=== PATIENT | male | born 1990 | race African-American/Black ===

== ENCOUNTER 2022-09-19 12:03 | Observation (INO) | payer OTHER, SELFPAY ==
[2022-09-19] VITALS (17 sets, daily range): BP systolic 124–147; BP diastolic 89–112; PULSE 75–98; RESP 11–21; TEMP 36.6; O2SAT 95–99
--- NOTE | ~2022-09-19 | CT_ITS ---
EXAMINATION: CT brain wo con DATE: 09/19/2022 13:55 INDICATION: Somnolence TECHNIQUE: Computed tomography (CT) of the head was performed without intravenous contrast. The mA wa s adjusted according to patient size. Iterative reconstruction technique was employed. Exam dose: 60 5.33 mGy-cm total exam DLP. COMPARISON: None FINDINGS: No intracranial mass lesion or hemorrhage or cerebrovascular accident. No midline shift or mass effect. Normal ventricular size. Normal antony-white matter differentiation. No subdural or epidural hematoma. No skull fracture or bone destruction. Included paranasal sinuses and mastoid air cells are normally developed and aerated. IMPRESSION: Negative Reviewed, dictated and finalized at [facility]. Reviewed, dictated and finalized at location [facility]. IMPRESSION: Negative
--- NOTE | ~2022-09-19 | XR_ITS ---
XR chest 2V DATE: 09/19/2022 14:00 INDICATION: Shortness of breath. Fatigue. Bilateral leg numbness. TECHNIQUE: AP and lateral view COMPARISON: None FINDINGS: Normal heart size. No hilar or mediastinal enlargement. No pulmonary infiltrate or consolid ation, pleural effusion or pulmonary vascular congestion or pneumothorax. IMPRESSION: Negative Reviewed, dictated and finalized at location [facility]. IMPRESSION: Negative
[2022-09-19] MEDS: SODIUM CHLORIDE 0.9% IV 1,000 ML 999 ML IV CONT (13:23)
[2022-09-19 13:33] LABS: Alveolar/Arterial O2 Gradient 19.8 mmHg; Base Excess ABG -0.2 mEq/l (+/-2.0); Carboxyhemoglobin 3.6 % THb (0-2.0); Device ROOM AIR; Fractional Inspired Oxygen 21 %; HCO3 ABG 25.5 mEq/l (22.0-26.0); Methemoglobin ABG 0.3 %THb (0-1.5); Oxygen Content ABG 17.6 %vol (16.0-22.0); Oxygen Saturation ABG 94.6 % (95.0-100.0); Oxyhemoglobin 90.1 % THb (90.0-100.0); PCO2 ABG 45.5 mmHg (35.0-45.0); PO2 ABG 75.4 mmHg (80.0-100.0); PO2 FiO2 Ratio Arterial Blood 3.59 %; Site Drawn LEFT BRACHIAL; Total Hemoglobin 13.9 g/dL (12.0-18.0); pH ABG 7.366 (7.350-7.450)
[2022-09-19 13:35] LABS: Basophils Percent Auto 0.5 % (0.2-1.2); Eosinophils Percent Auto 0.7 % (0-4.4); Hematocrit 38.2 % (42.0-52.0); Hemoglobin 13.7 g/dL (14.0-18.0); Immature Granulocyte Absolute 0.01 K/mm3 (0.00-0.031); Immature Granulocyte Percent A 0.2 % (0-0.5); Lymphocytes Absolute Auto 1.95 K/mm3 (0.9-3.2); Lymphocytes Percent Auto 34.4 % (18.3-44.2); Mean Corpuscular HGB Conc 35.9 g/dl (32-36); Mean Corpuscular Hemoglobin 30.3 pg (26-34); Mean Corpuscular Volume 84.5 fl (80-100); Monocytes Absolute Auto 0.6 K/mm3 (0.1-0.6); Monocytes Percent Auto 9.7 % (2.6-8.5); Neutrophils Absolute Auto 3.1 K/mm3 (1.3-6.7); Neutrophils Percent Auto 54.5 % (45.5-73.1); Platelet Count Result 260 k/mm3 (150-375); Red Blood Count 4.52 M/mm3 (4.6-6.20); White Blood Count 5.7 K/mm3 (4.5-10.0)
[2022-09-19 13:57] LABS: Appearance Urine Clear (Clear); Bilirubin Urine Negative (Negative); Blood Urine Negative (Negative); Color Urine Yellow (Yellow); Glucose Urine UA 3+ mg/dL (Negative); Ketones Urine 2+ mg/dL (Negative); Leukocyte Esterase Ur Negative LEU/UL (Negative); Nitrate Urine Negative (Negative); Protein Urine Negative (Negative); Specific Grav Ur 1.034 (1.001-1.035); Urobilinogen Urine 0.2 mg/dL (<2.0)
[2022-09-19 14:02] LABS: Monoscreen Negative (Negative); Negative Monotest Control Negative (Negative); Positive Monotest Control Positive (Positive)
[2022-09-19 14:05] LABS: Alanine Aminotransferase 28 U/L (6-50); Albumin Level 4.1 g/dL (3.5-5.1); Alkaline Phosphatase 86 U/L (38-126); Anion Gap 9 mmol/L (8-16); Aspartate Amino Transferase 30 U/L (17-59); Bilirubin,Total 0.8 mg/dL (0.2-1.3); Blood Urea Nitrogen 18 mg/dL (9-20); Calcium 8.7 mg/dL (8.4-10.2); Carbon Dioxide 27 mmol/L (22-30); Chloride 88 mmol/L (98-107); Estimated CRCL calculation 111 ml/min; Estimated Glomerular Filt Rate > 60; Glucose 638 mg/dL (65-110); Potassium 4.9 mmol/L (3.4-5.0); Sodium 124 mmol/L (137-145)
[2022-09-19 14:10] LABS: Influenza A QL RT-PCR Negative (Negative); Influenza B QL RT-PCR Negative (Negative); SARS-CoV-2 RNA PCR Negative
[2022-09-19 14:11] LABS: Add Urine Microscopic? NO
--- NOTE | 2022-09-19 14:14 | ED.GENADULT ---
HPI - General Adult General Chief complaint: Unspecified Stated complaint: multiple complaints Time Seen by Provider: 09/19/22 12:41 History of Present Illness HPI narrative: Patient is a 32-year-old male who presents ER with fatigue and weakness. Ongoing over the last month. Reports he feels tired all the time and has trouble waking up. When he does sleep he tends to sleep so heavily that he urinates on himself. Reports poor oral intake. Reports he has depressed mood which is a typical form. Denies fevers or chills or sweats. No chest pain or chest pressure. Has been having some intermittent numbness left little toe. Reports he does not check his sugars at home and that he takes metformin for his diabetes. Patient denies unintended weight loss. Related Data Home Medications Medication Instructions Recorded Confirmed amlodipine 5 mg tablet 5 mg PO DAILY 09/19/22 09/19/22 atorvastatin 10 mg tablet 10 mg PO HS 09/19/22 09/19/22 insulin glargine 100 unit/mL 20 unit subcut HS 09/19/22 09/19/22 subcutaneous solution (Lantus U-100 Insulin) insulin lispro 100 unit/mL 5 unit subcut TIDWM 09/19/22 09/19/22 subcutaneous solution (Humalog U-100 Insulin) losartan 25 mg tablet 25 mg PO DAILY 09/19/22 09/19/22 metformin 500 mg tablet 500 mg PO BID 09/19/22 09/19/22 Allergies Allergy/AdvReac Type Severity Reaction Status Date / Time lisinopril Allergy Severe Swelling Verified 09/19/22 16:53 of Lip/Tongue/Throat Review of Systems Constitutional: Constitutional: Denies chills, Reports daytime sleepiness, Reports fatigue, Denies fever(s), Reports lethargy, Reports poor appetite and Denies weight loss ENT: Denies nasal congestion and Denies sore throat Respiratory: Respiratory: Denies cough and Denies dyspnea Gastrointestinal: Gastrointestinal: Denies abdominal pain, Denies nausea and Denies vomiting PMF Past Medical History Medical History (Updated 09/19/22 @ 17:13 by Ivett Chaves NP) DM2 (diabetes mellitus, type 2) HTN (hypertension) with goal to be determined Hyperlipidemia Surgical History Surgical History (Updated 09/19/22 @ 15:04 by Ivett Chaves NP) [place] teeth extracted Family History Family History (Updated 09/19/22 @ 15:05 by Ivett Chaves NP) Grandparent Diabetes mellitus Mother Diabetes mellitus Social History Social History (Updated 09/19/22 @ 17:14 by Ivett Chaves NP) Social History: The patient lives with his and has one child. The power ip attorney is his . He works for [employer]. Code status full code Smoking packs per day: 0.5 Smoking cigarettes per day: 10.0 Years smoked: 8 Smoking pack-years: 4.00 Smoking status: Current some day smoker Tobacco type: cigarettes Alcohol intake: former Substance use: never Lack of Transportation: No Lack of Food: Sometimes True Current Housing: I Have Housing Concerned About Future Housing: No Difficulty Paying Gas/Electric Bills: No Difficulty Paying for Meds: No Currently Unemployed: No Education: Decline to Answer Difficulty w/ Childcare or Family Care: No Spiritual care concerns: No Exam Narrative: GENERAL: Fatigued-appearing, well-nourished, and in no acute distress. HEAD: Normocephalic, atraumatic. EYES: PERRL and EOMI. ENT: Mucous membranes moist. NECK: Supple. CHEST: Clear to auscultation. No respiratory distress. HEART: Regular rate and rhythm. Normal peripheral pulses. ABDOMEN: Soft, nontender, nondistended. EXTREMITIES: Normal range of motion. No edema. SKIN: Warm, dry, no rash. NEURO: Alert and oriented x3. PSYCH: Normal mood and affect. Course Course Emergency Course: I have approached the patient once again about his blood sugars. Earlier he had only said he is on metformin now he reports he is on Lantus and Humalog as well. He has not been taking them because he feels like they are making him feel depressed as wel
[2022-09-19 14:21] LABS: Thyroid Stimulating Hormone Reflex 0.355 uIU/mL (0.465-4.68)
--- NOTE | 2022-09-19 14:55 | PM.IMHP ---
H&P: HPI History of Present Illness Date/Time: 09/19/22 14:55 Chief Complaint: Multiple complaints Narrative: This is a 32-year-old male patient who has diabetes type 2. The patient came into the emergency room complaining of fatigue and weakness. The patient has polyphagia and polydipsia. The patient stated that he was diagnosed with diabetes 2 years ago. The patient stated that he is tired of poking himself. He does not like to give himself insulin or dizzy like to check his blood sugars. The patient has been sleeping quite a bit and having difficulty waking up. The patient stated that he is more depressed than usual. He has no chest pain or chest pressure. The patient does not check his blood sugars at home. The patient tells me that he has lost quite a bit a weight since he was diagnosed with diabetes 2 years ago. His H&H is 13.7 and 38.2. Sodium is 124 chloride 88. Glucose of 638 and then it came down to 346. His A1c is pending. TSH is 0.3 x 5 and T3 is 0.84. The patient was negative for mono, influenza a influenza B and COVID. Chest x-ray is negative. Head CT is negative. The patient was given a L fluid and IV insulin as well as Lantus. The patient is being admitted to observation status on the date of service of 09/19/2022 Review of Systems Review of Systems: All systems reviewed & are unremarkable except as noted in HPI and below Constitutional: Constitutional: Reports as per HPI and Reports no additional constitutional complaints Eyes: Eyes: Reports as per HPI and Reports no additional eye complaints ENT: Reports system reviewed and no additional complaints, except as documented and Reports Normal hearing present Cardiovascular: Cardiovascular: Reports no additional cardiovascular complaints Respiratory: Respiratory: Reports no additional respiratory complaints and Reports no additional respiratory complaints Gastrointestinal: Gastrointestinal: Reports as per HPI and Reports no additional gastrointestinal complaints Musculoskeletal: Musculoskeletal: Reports no additional musculoskeletal complaints Integumentary/Breasts: Skin/Breast: Reports system reviewed and no additional complaints, except as docu and Reports as per HPI Neurologic: Reports system reviewed and no additional complaints, except as documented, Reports as per HPI and Reports Normal hearing present Psychiatric: Psychiatric: Reports no additional psychiatric complaints and Reports as per HPI Endocrine: Endocrine: Reports no additional endocrine complaints Hematologic/Lymphatic: Hematologic/Lymphatic: Reports no additional hematologic/lymphatic complaints Allergic/Immunologic: Allergic/Immunologic: Reports no additional allergic/immunologic complaints PMFSH Past Medical History Medical History (Updated 09/19/22 @ 17:13 by Ivett Chaves NP) DM2 (diabetes mellitus, type 2) HTN (hypertension) with goal to be determined Hyperlipidemia Surgical History Surgical History (Updated 09/19/22 @ 15:04 by Ivett Chaves NP) [place] teeth extracted Family History Family History (Updated 09/19/22 @ 15:05 by Ivett Chaves NP) Grandparent Diabetes mellitus Mother Diabetes mellitus Social History Social History (Updated 09/19/22 @ 17:14 by Ivett Chaves NP) Social History: The patient lives with his and has one child. The power state's attorney is his . He works for [employer]. Code status full code Smoking packs per day: 0.5 Smoking cigarettes per day: 10.0 Years smoked: 8 Smoking pack-years: 4.00 Smoking status: Current some day smoker Tobacco type: cigarettes Alcohol intake: former Substance use: never Lack of Transportation: No Lack of Food: Sometimes True Current Housing: I Have Housing Concerned About Future Housing: No Difficulty Paying Gas/Electric Bills: No Difficulty Paying for Meds: No Currently Unemployed: No Education: Decline to Answer Difficulty w/ Child
[2022-09-19 15:02] LABS: Free T4 Free Thyroxine Reflex 1.23 ng/dL (0.78-2.19)
[2022-09-19] MEDS: INSULIN HUMAN REGULAR (*BKC) 100 UNITS/ML 8 UNITS IV PUSH (15:13)
[2022-09-19] MEDS: INSULIN GLARGINE (*BKC) 100 UNITS/ML 20 UNITS SUB-Q ×2 (15:15→21:06)
[2022-09-19] MEDS: SODIUM CHLORIDE 0.9% IV 1,000 ML 125 ML IV CONT (15:21)
[2022-09-19 15:43] LABS: Glucose Point of Care 459 mg/dl (65-105)
[2022-09-19 15:45] LABS: Total Triiodothyronine (T3) 0.84 NG/ML (0.97-1.69)
--- NOTE | 2022-09-19 16:08 | ADMGEN ---
This patient, Lupillo Kevin, was admitted to IMU Room 209-01 on 09/19/22 at 1548. Patient/family oriented to hospital policies and general routines including ID bracelet, bed and alarms, visiting hours, pain management, procedures, bathroom and other care routines, personal items, smoking policy, room service/diet, and visiting hours. Information on how to activate the Rapid Response Team has been discussed. Patient/Family are encouraged to report perceived risks to care and to ask questions if they do not understand what they are told or what they should do.
[2022-09-19 16:43] LABS: Glucose Point of Care 346 mg/dl (65-105)
[2022-09-19] MEDS: INSULIN ASPART (*BKC) 100 UNITS/ML 6 UNITS SUB-Q (17:28)
[2022-09-19 20:06] LABS: Glucose Point of Care 309 mg/dl (65-105)
[2022-09-19] MEDS: ATORVASTATIN 10 MG TABLET PO (20:36)
[2022-09-20] VITALS (14 sets, daily range): BP systolic 125–143; BP diastolic 79–99; PULSE 55–85; RESP 12–20; TEMP 35.9–36.7; O2SAT 97–100
[2022-09-20] MEDS: SODIUM CHLORIDE 0.9% IV 1,000 ML 125 ML IV CONT ×3 (00:02→18:24)
[2022-09-20 05:17] LABS: Basophils Percent Auto 0.5 % (0.2-1.2); Eosinophils Absolute Auto 0.1 K/mm3 (0-0.3); Eosinophils Percent Auto 2.2 % (0-4.4); Hematocrit 36.6 % (42.0-52.0); Hemoglobin 12.5 g/dL (14.0-18.0); Immature Granulocyte Absolute 0.02 K/mm3 (0.00-0.031); Immature Granulocyte Percent A 0.3 % (0-0.5); Lymphocytes Absolute Auto 3.11 K/mm3 (0.9-3.2); Lymphocytes Percent Auto 52.3 % (18.3-44.2); Mean Corpuscular HGB Conc 34.2 g/dl (32-36); Mean Corpuscular Hemoglobin 29.7 pg (26-34); Mean Corpuscular Volume 86.9 fl (80-100); Mean Platelet Volume 10.3 fl (7.4-10.4); Monocytes Absolute Auto 0.4 K/mm3 (0.1-0.6); Monocytes Percent Auto 6.7 % (2.6-8.5); Neutrophils Absolute Auto 2.3 K/mm3 (1.3-6.7); Platelet Count Result 216 k/mm3 (150-375); Red Blood Count 4.21 M/mm3 (4.6-6.20); Red Cell Distribution Width 11.3 % (11.5-14.5)
[2022-09-20 05:30] LABS: Alanine Aminotransferase 24 U/L (6-50); Albumin Level 3.5 g/dL (3.5-5.1); Alkaline Phosphatase 58 U/L (38-126); Anion Gap 5 mmol/L (8-16); Aspartate Amino Transferase 23 U/L (17-59); Bilirubin,Total 0.5 mg/dL (0.2-1.3); Blood Urea Nitrogen 15 mg/dL (9-20); Calcium 8.1 mg/dL (8.4-10.2); Carbon Dioxide 29 mmol/L (22-30); Chloride 98 mmol/L (98-107); Estimated CRCL calculation 144 ml/min; Estimated Glomerular Filt Rate > 60; Glucose 214 mg/dL (65-110); Magnesium 1.6 mg/dL (1.6-2.3); Potassium 3.5 mmol/L (3.4-5.0); Sodium 132 mmol/L (137-145)
[2022-09-20 07:24] LABS: Hemoglobin A1C > 14.0 % (<5.7)
[2022-09-20] MEDS: INSULIN ASPART (*BKC) 100 UNITS/ML SUB-Q ×3 (08:05→17:03)
[2022-09-20] MEDS: amLODIPine BESYLATE 5 MG TABLET PO (08:10)
[2022-09-20] MEDS: ENOXAPARIN 40 MG/0.4 ML SYRINGE SUB-Q (08:10)
[2022-09-20] MEDS: LOSARTAN POTASSIUM 25 MG TABLET PO (08:10)
[2022-09-20 08:11] LABS: Glucose Point of Care 318 mg/dl (65-105)
[2022-09-20] MEDS: polyethylene glycoL 3350 17 GM POWD.PACK PO (09:58)
[2022-09-20] MEDS: DOCUSATE SODIUM 100 MG CAPSULE PO ×2 (09:58→21:49)
[2022-09-20 11:44] LABS: Glucose Point of Care 270 mg/dl (65-105)
--- NOTE | 2022-09-20 14:59 | PM.IMPN ---
Progress Note: A&P Assessment and Plan (1) Uncontrolled diabetes mellitus: Status: Acute Assessment and Plan: This gentleman was diagnosed approximately 2 years ago diabetes. The patient stated that he is tired of sticking himself to check his blood sugars as well as given himself insulin. I explained to him that he could follow-up with an cargo router outpatient flores here at [facility]. The patient is noncompliant with his diet as well as medication. His stated that the patient does not always follow his diet. Check A1c Accu-Cheks AC and HS with sliding scale insulin high dose with hypoglycemic protocol. Continue with Lantus I reviewed the sites that the patient can inject himself. The patient thought that he could only inject himself in the abdomen. I explained that he can inject himself in the arms and the thighs as well as his buttocks. I did show in the diagram. I also explained to the patient that he may be eligible for a continue glucose monitor because he is taking insulin 3 times a day. certified adapted physical educator and dietitian has been consulted. Continue with IV fluids Since the patient is non compliant with his insulin may consider adding oral medications. 09/20/2022 interval history: 32-year-old male with type 2 diabetes uncontrolled with with hemoglobin A1c of 14 had long discussion, will start the patient on oral medication with metformin 500 mg twice and Glucotrol 5 mg XL once a day will monitor patient blood sugar with sliding scale all in the hospital, will have a dietitian and informatics educator work with the patient. (2) Hyperlipidemia: Code(s): E78.5 - Hyperlipidemia, unspecified Status: Acute Assessment and Plan: Continue with atorvastatin (3) HTN (hypertension) with goal to be determined: Code(s): I10 - Essential (primary) hypertension Status: Acute Assessment and Plan: Continue with amlodipine Plan Subclinical hypothyroidism Patient will need to recheck his thyroid level in approximately 1 month. Subjective Date/time seen: 09/20/22 14:59 Multiple complaints HPI-Narrative: This is a 32-year-old male patient who has diabetes type 2.? The patient came into the emergency room complaining of fatigue and weakness.? The patient has polyphagia and polydipsia.? The patient stated that he was diagnosed with diabetes 2 years ago.? The patient stated that he is tired of poking himself.? He does not like to give himself insulin or dizzy like to check his blood sugars.? The patient has been sleeping quite a bit and having difficulty waking up.? The patient stated that he is more depressed than usual.? He has no chest pain or chest pressure.? The patient does not check his blood sugars at home.? The patient tells me that he has lost quite a bit a weight since he was diagnosed with diabetes 2 years ago.? His H&H is 13.7 and 38.2.? Sodium is 124 chloride 88.? Glucose of 638 and then it came down to 346.? His A1c is pending.? TSH is 0.3 x 5 and T3 is 0.84.? The patient was negative for mono, influenza a influenza B and COVID.? Chest x-ray is negative.? Head CT is negative.? The patient was given a L fluid and IV insulin as well as Lantus.? 09/20/2022 interval history: 32-year-old male with type 2 diabetes uncontrolled with with hemoglobin A1c of 14 had long discussion, will start the patient on oral medication with metformin 500 mg twice and Glucotrol 5 mg XL once a day will monitor patient blood sugar with sliding scale all in the hospital, will have a dietitian and informatics educator work with the patient. Review of Systems Review of Systems: All systems reviewed & are unremarkable except as noted in HPI and below Exam Narrative: Moderately obese Patient is comfortable, NAD HEENT: eyes are clear and none icteric LUNGS: Normal respiratory ABD: Distended Lower extremities: no edema SKIN: nonjaundiced Neuro: grossly intact. Objective D
[2022-09-20 16:20] LABS: Glucose Point of Care 437 mg/dl (65-105)
[2022-09-20 16:52] LABS: Glucose Point of Care 402 mg/dl (65-105)
[2022-09-20] MEDS: INSULIN GLARGINE (*BKC) 100 UNITS/ML 30 UNITS SUB-Q (17:01)
[2022-09-20] MEDS: metFORMIN HCL XR 500 MG TAB.SR.24H PO (18:24)
[2022-09-20 19:37] LABS: Glucose Point of Care 366 mg/dl (65-105)
[2022-09-20 20:09] LABS: Glucose Point of Care 360 mg/dl (65-105)
[2022-09-20] MEDS: ATORVASTATIN 10 MG TABLET PO (21:49)
[2022-09-20] MEDS: INSULIN ASPART (*BKC) 100 UNITS/ML 8 UNITS SUB-Q (21:49)
[2022-09-21] VITALS (7 sets, daily range): BP systolic 116–133; BP diastolic 87–96; PULSE 59–74; RESP 16–20; TEMP 36.3–36.4; O2SAT 99–100
[2022-09-21] MEDS: SODIUM CHLORIDE 0.9% IV 1,000 ML 125 ML IV CONT (02:25)
[2022-09-21 08:02] LABS: Glucose Point of Care 117 mg/dl (65-105)
[2022-09-21] MEDS: DOCUSATE SODIUM 100 MG CAPSULE PO (08:14)
[2022-09-21] MEDS: metFORMIN HCL XR 500 MG TAB.SR.24H PO (08:14)
[2022-09-21] MEDS: LOSARTAN POTASSIUM 25 MG TABLET PO (08:14)
[2022-09-21] MEDS: glipiZIDE 5 MG TABLET PO (08:15)
[2022-09-21] MEDS: amLODIPine BESYLATE 5 MG TABLET PO (08:16)
[2022-09-21] MEDS: ENOXAPARIN 40 MG/0.4 ML SYRINGE SUB-Q (08:16)
[2022-09-21] MEDS: METOCLOPRAMIDE HCL INJ 10 MG/2 ML VIAL IV PUSH (11:44)
[2022-09-21] MEDS: INSULIN ASPART (*BKC) 100 UNITS/ML SUB-Q (11:56)
[2022-09-21 11:58] LABS: Glucose Point of Care 256 mg/dl (65-105)
--- NOTE | 2022-09-21 14:56 | PM.DS ---
DS: Admitting Diagnosis Discharge Date 09/21/2022 Admitting Diagnosis Multiple complaints DS: Discharge Diagnosis Discharge Diagnosis (1) Uncontrolled diabetes mellitus: Status: Acute Assessment and Plan: This gentleman was diagnosed approximately 2 years ago diabetes. The patient stated that he is tired of sticking himself to check his blood sugars as well as given himself insulin. I explained to him that he could follow-up with an prepleater outpatient flores here at [facility]. The patient is noncompliant with his diet as well as medication. His stated that the patient does not always follow his diet. Check A1c Accu-Cheks AC and HS with sliding scale insulin high dose with hypoglycemic protocol. Continue with Lantus I reviewed the sites that the patient can inject himself. The patient thought that he could only inject himself in the abdomen. I explained that he can inject himself in the arms and the thighs as well as his buttocks. I did show in the diagram. I also explained to the patient that he may be eligible for a continue glucose monitor because he is taking insulin 3 times a day. wet end tester and dietitian has been consulted. Continue with IV fluids Since the patient is non compliant with his insulin may consider adding oral medications. 09/20/2022 interval history: 32-year-old male with type 2 diabetes uncontrolled with with hemoglobin A1c of 14 had long discussion, will start the patient on oral medication with metformin 500 mg twice and Glucotrol 5 mg XL once a day will monitor patient blood sugar with sliding scale all in the hospital, will have a dietitian and material handling crew supervisor work with the patient. (2) Hyperlipidemia: Code(s): E78.5 - Hyperlipidemia, unspecified Status: Acute Assessment and Plan: Continue with atorvastatin (3) HTN (hypertension) with goal to be determined: Code(s): I10 - Essential (primary) hypertension Status: Acute Assessment and Plan: Continue with amlodipine Plan Subclinical hypothyroidism Patient will need to recheck his thyroid level in approximately 1 month. DS: Summary Hospital Course Reason for hospitalization: Multiple complaints Narrative: This is a 32-year-old male patient who has diabetes type 2.? The patient came into the emergency room complaining of fatigue and weakness.? The patient has polyphagia and polydipsia.? The patient stated that he was diagnosed with diabetes 2 years ago.? The patient stated that he is tired of poking himself.? He does not like to give himself insulin or dizzy like to check his blood sugars.? The patient has been sleeping quite a bit and having difficulty waking up.? The patient stated that he is more depressed than usual.? He has no chest pain or chest pressure.? The patient does not check his blood sugars at home.? The patient tells me that he has lost quite a bit a weight since he was diagnosed with diabetes 2 years ago.? His H&H is 13.7 and 38.2.? Sodium is 124 chloride 88.? Glucose of 638 and then it came down to 346.? His A1c is pending.? TSH is 0.3 x 5 and T3 is 0.84.? The patient was negative for mono, influenza a influenza B and COVID.? Chest x-ray is negative.? Head CT is negative.? The patient was given a L fluid and IV insulin as well as Lantus.? Hospital Course: 32-year-old male with type 2 diabetes uncontrolled with with hemoglobin A1c of 14 had long discussion, will start the patient on oral medication with metformin 500 mg twice and Glucotrol 5 mg XL once a day will monitor patient blood sugar with sliding scale all in the hospital, will have a dietitian and material handling crew supervisor work with the patient. Patient is clinically stable will discharge the patient will follow-up with his primary care provider and material handling crew supervisor. Time Spent with Patient Time attestation: Total time spent providing and/or coordinating discharge services: Exam Narrative
== END 2022-09-21 15:54 | disposition home or self-care (01) ==
LOC: ANHED 14:24 → ANHIMU 16:00
PROVIDERS: Nurse Practitioner; Admitting Provider Hospitalist; Emergency Provider Emergency Medicine; PCP Internal Medicine Gastroenterology; Visit Provider Family Medicine
DX: R53.83 Other fatigue (principal); E78.5 Hyperlipidemia, unspecified; I10 Essential (primary) hypertension; F32.A Depression, unspecified; R20.0 Anesthesia of skin; Z20.822 Contact with and (suspected) exposure to COVID-19; E11.65 Type 2 diabetes mellitus with hyperglycemia; F17.210 Nicotine dependence, cigarettes, uncomplicated; D64.9 Anemia, unspecified; E87.1 Hypo-osmolality and hyponatremia; R63.1 Polydipsia; R63.2 Polyphagia; R06.02 Shortness of breath; R63.0 Anorexia; E66.8 Other obesity; Z68.27 Body mass index [BMI] 27.0-27.9, adult; Z79.4 Long term (current) use of insulin; Z79.84 Long term (current) use of oral hypoglycemic drugs; Z79.899 Other long term (current) drug therapy; Z83.3 Family history of diabetes mellitus
CPT/HCPCS: 36415; 36600; 70450; 71046; 80053; 81003; 82375; 82805; 82948; 83036; 83050; 83605; 83735; 84439; 84443; 84480; 85025; 86308; 87636; 96360; 96361; 96374; 99285; A9270; G0378; J1650; J1815; J2765; J7030

== ENCOUNTER 2024-11-04 13:18 | Emergency (ER) | payer OTHER, SELFPAY ==
[2024-11-04] VITALS (15 sets, daily range): BP systolic 125–139; BP diastolic 100–104; PULSE 67–97; RESP 9–19; TEMP 36.3; O2SAT 99–100
--- OUTSIDE RECORDS SUMMARY | 2024-11-04 13:27 | XMS_ITS | Referral Summary ---
Author Organization [facility] Address [address] [place] [address] Care Team Providers Care Milliner Helper Name Role Phone Laila Medina MD Primary Care Provider Allergies Active Allergy Reactions Criticality Noted Date Comments Lisinopril Swelling Medium 06/30/2021 Medications benzonatate (TESSALON) 100 mg capsuleIndications: Cough Take 1 capsule (100 mg total) by mouth every 8 (eight) hours 21 capsule 2 Active ondansetron ODT (ZOFRAN-ODT) 4 mg disintegrating tablet Take 1 tablet (4 mg total) by mouth every 8 (eight) hours as needed for nausea or vomiting 20 tablet 2 Active Social History Tobacco Use Types Packs/Day Years Used Date Smoking Tobacco: Never Assessed Personal Safety Answer Date Recorded Getting School Help Needed Not on file 08/22 Sex and Gender Information Value Date Recorded Sex Assigned at Not on file Legal Sex Male 4:12 PM TURNER OFF Gender Identity Not on file Sexual Orientation Not on file Last Filed Vital Signs Vital Sign Reading Time Taken Comments Blood Pressure 110/73 07/01/2021 6:50 AM TURNER OFF Pulse 64 07/01/2021 6:50 AM TURNER OFF Temperature 36.7 C (98.1 F) 06/30/2021 4:13 PM TURNER OFF Respiratory Rate 16 07/01/2021 6:50 AM TURNER OFF Oxygen Saturation 99% 07/01/2021 6:50 AM TURNER OFF Inhaled Oxygen Concentration - - Weight 83.5 kg (184 lb 1.4 oz) 06/30/2021 4:13 P M TURNER OFF Height 170.2 cm (5' 7 ) 06/30/2021 4:13 PM TURNER OFF Body Mass Index 28.83 06/30/2021 4:13 PM TURNER OFF Plan of Treatment Not [place] [address] [employer] [facility] CHOICE PLUS Care Teams Milliner Helper Relationship Specialty [place] [address] [place] [id number] PCP - General Gastroenterology 06/30/21
--- OUTSIDE RECORDS SUMMARY | 2024-11-04 13:27 | XMS_ITS | Clinical Summary ---
Author Organization [facility] Address [address] [place] [address] Care Team Providers Care Medical Artist Name Role Phone Laila Medina MD Primary [...] on file Legal Sex Male 4:12 PM OPERATING ROOM ORDERLY Gender Identity Not on file Sexual Orientation Not on file Last Filed Vital Signs Vital Sign Reading Time Taken Comments Blood Pressure 110/73 07/01/2021 6:50 AM OPERATING ROOM ORDERLY Pulse 64 07/01/2021 6:50 AM OPERATING ROOM ORDERLY Temperature 36.7 C (98.1 F) 06/30/2021 4:13 PM OPERATING ROOM ORDERLY Respiratory Rate 16 07/01/2021 6:50 AM OPERATING ROOM ORDERLY Oxygen Saturation 99% 07/01/2021 6:50 AM OPERATING ROOM ORDERLY Inhaled Oxygen Concentration - - Weight 83.5 kg (184 lb 1.4 oz) 06/30/2021 4:13 P M OPERATING ROOM ORDERLY Height 170.2 cm (5' 7 ) 06/30/2021 4:13 PM OPERATING ROOM ORDERLY Body Mass Index 28.83 06/30/2021 4:13 PM OPERATING ROOM ORDERLY Plan of Treatment [place] [address] [employer] [facility] CHOICE PLUS [facility] H[facility]/PPO Address: [address] [address] [place] [address] Care Teams Medical Artist Relationship Specialty [place] [address] [place] [id number] PCP - General Gastroenterology 06/30/21
--- OUTSIDE RECORDS SUMMARY | 2024-11-04 13:27 | XMS_ITS | Clinical Summary ---
Author Organization [facility] Address [address] [place] [address] Care Team Providers Care Commercial Teller Name Role Phone Laila Medina MD Primary Care Provider [phone] Allergies Active Allergy Reactions Criticality Noted Date Comments Penicillins Unknown 07/17/2021 Medications benzonatate 100 MG capsule Take 100 mg by mouth 3 (three) times daily as needed for Cough. 2 Active ondansetron 4 MG disintegrating tablet Take 4 mg by mouth every 8 (eight) hours as needed for Nausea. 2 Active atorvastatin 10 MG tablet Take 10 mg by mouth nightly at bedtime. Active losartan 25 MG tablet Take 25 mg by mouth daily. Active amLODIPine 5 MG tablet Take 5 mg by mouth daily. Active metFORMIN 500 MG tablet Take 2 tablets (1,000 mg total) by mouth 2 (two) times daily with meals. 180 tablet 1 2 Active insulin glargine 100 UNIT/ML injection (VIAL) Inject 22 Units into the skin nightly at bedtime. 10 mL 3 2 Active insulin lispro 100 UNIT/ML injection (VIAL) Inject 7 Units into the skin 3 (three) times daily with meals. 10 mL 12 2 Active Glucose Blood (FREESTYLE TEST STRIPS) test strip 1 strip by Other route as needed. Use as instructed 500 strip 2 2 Active Lancets Misc 1 Units by Does not apply route 4 (four) times daily. 200 each 2 2 Active Blood Glucose Monitoring Suppl (D-CARE GLUCOMETER) w/Device Kit 1 Units by Does not apply route 4 (four) times daily. 1 kit 2 Active Alcohol Swabs (ALCOHOL WIPES) 70 % Pads 1 Units by Does not apply route 4 (four) times daily. 100 each 2 2 Active Active Problems Problem Noted Date Diagnosed Date Diabetes mellitus ([facility]) Assessment & Plan (07/19/2021 11:18 AM STRIPPER SOFT PLASTIC): Chronic, uncontrolled. A1C > 18.5 on admission. Patient takes metformin 500 mg BID at home for management. Presented in DKA. Need to discuss compliance on medication. Warrants metformin max dose and basal bolus insulin on discharge. Hold metformin while inpatient Lantus 15 units given last night Increase Lantus to 22, mealtime to 7 U BG 287 Diabetes education ordered Correctional insulin ordered, resistant dosing Likely needs SGLT-2 or DDP-4 inhibitor as well on discharge Hypertension Assessment & Plan (07/18/2021 11:11 AM STRIPPER SOFT PLASTIC): Chronic. Uncontrolled. Home meds include losartan and amlodipine. BP low overnight. Hold home BP meds until BP elevates Monitor while inpatient. Resolved Problems Problem Noted Date Diagnosed Date Resolved Date DKA (diabetic ketoacidosis) ([facility]) 07/17/19 22 07/18/2021 Assessment & Plan (07/18/2021 11:08 AM STRIPPER SOFT PLASTIC): Resolved. Anion gap closed early this morning. Insulin drip stopped after 2 hours of Lantus dose. Continue to monitor with daily BMP Cough 07/19/2021 Assessment & Plan (07/18/2021 11:12 AM STRIPPER SOFT PLASTIC): COVID negative, likely was infected recently but since resolved. CTA negative. Continue to monitor as needed. Elevated d-dimer 07/19/2021 Assessment & Plan (07/18/2021 11:12 AM STRIPPER SOFT PLASTIC): CTA negative. Likely related to recent COVID. Immunizations Immunization Administration Dates Next Due Fluzone 6 Months+ Quad (0.5 mL Prefilled Syringe ) 07/20/2021 Social History Tobacco Use Types Packs/Day Years Used Date Smoking Tobacco: Former Smokeless Tobacco: Never Alcohol Use Standard Drinks/Week Comments Not Currently 0 (1 standard drink = 0.6 oz pur e alcohol) Sex and Gender Information Value Date Recorded Sex Assigned at Not on file Legal Sex Male 1:11 PM STRIPPER SOFT PLASTIC Gender Identity Not on file Sexual Orientation Not on file Last Filed Vital Signs Vital Sign Reading Time Taken Comments Blood Pressure 113/77 07/20/2021 3:55 AM STRIPPER SOFT PLASTIC Pulse 65 07/20/2021 3:55 AM STRIPPER SOFT PLASTIC Temperature 36.5 C (97.7 F) 07/20/2021 3:55 AM STRIPPER SOFT PLASTIC Respiratory Rate 18 07/20/2021 3:55 AM STRIPPER SOFT PLASTIC Oxygen Saturation 99% 07/20/2021 3:55 AM STRIPPER SOFT PLASTIC Inhaled Oxygen Concentration - - Weight 81 kg (178 lb 9.2 oz) 07/20/2021 3:55 AM STRIPPER SOFT PLASTIC Height 170.2 cm (5' 7 ) 07/17/2021 1:13 PM STRIPPER SOFT PLASTIC Body Mass Index 27.97 07/17/2021 1:13 PM STRIPPER SOFT PLASTIC Plan of Treatment Health Maintenance Due Date Last Done Comments Kidney Health Evaluation 1989 Lipid Panel 1989 Annual Physical 1992 DTaP, Tdap and Td Vaccines (5 - Tdap) 05/11/2002 05/10/2002, 02/27/1994, 03/01/1991, Additional history exists Diabetes: Retinopathy Eye Exam 2007 Hepatitis C 2007 Pneumococcal Vaccine: Pediatrics (0 to 5 Years) and At-Risk Patients (6 to 49 Years) (1 of 2 - PCV) 2008 Hemoglobin A1C 01/14/2022 07/17/2021 COVID-19 Vaccine ( - 2023- season) 2024 Hepatitis B Vaccines Completed 02/14/2003, 10/12/2002, 06/01/2002 HPV Vaccines Aged Out No longer eligi ble based on patient's age to complete this topic Meningococcal B Vaccine Aged Out No l onger eligible based on patient's age to complete this topic Meningococcal Vaccine Aged Out No kaden lobo eligible based on patient's age to complete this topic RSV Immunizations Under 20 Months Aged Out No longer eligible based on patient's age to complete this topic Goals Goal Patient Goal Type Associated Problems Recent Progress Patient-Stated? 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 Procedure Name Priority Date/Time Associated Diagnosis Comments HEMOGLOBIN, GLYCOSYLATED Routine 07/17/2021 2:15 PM STRIPPER SOFT PLASTIC from Last 3 Months or Most Recently Relevant to Health Maintenance Results * (ABNORMAL) HEMOGLOBIN, GLYCATED (07/17/2021 2:15 PM STRIPPER SOFT PLASTIC) HGB A1C >18.5(H) <5.7 % 07/18/2021 2:54 AM STRIPPER SOFT PLASTIC [facility] Comment: ADA GUIDELINES 2010 5.7 TO 6.4% INCREASED RISK OF DIABETES > OR = 6.5% CONSISTENT WITH DIABETES ESTIMATED AVG GLUCOSE NOT CALCULATED mg/dL 07/18/2021 2:54 AM STRIPPER SOFT PLASTIC [facility] 07/17/2021 2:15 PM STRIPPER SOFT PLASTIC Kenneth Hui MD LABORATORY Final Result [facility] [address] [place] [address], [place] [phone] from Last 3 Months or Most Recently Relevant to Health Maintenance Insurance MEDICAID UHC Advance Directives * Full Code (Latest Code Status on File) Date Activated Date Inactivated Comments 07/17/2021 5:19 PM 07/20/2021 11:53 AM Care Teams Commercial Teller Relationship Specialty Start Date End Date Laila Medina MD PCP - General INTERNAL MEDICINE 07/17/21
[2024-11-04 16:05] LABS: Basophils Percent Auto 0.6 % (0.2-1.2); Eosinophils Absolute Auto 0.1 K/mm3 (0-0.3); Eosinophils Percent Auto 0.9 % (0-4.4); Hematocrit 39.6 % (42.0-52.0); Hemoglobin 13.4 g/dL (14.0-18.0); Immature Granulocyte Absolute 0.01 K/mm3 (0.00-0.031); Immature Granulocyte Percent A 0.2 % (0-0.5); Lymphocytes Absolute Auto 2.26 K/mm3 (0.9-3.2); Lymphocytes Percent Auto 42.7 % (18.3-44.2); Mean Corpuscular HGB Conc 33.8 g/dl (32-36); Mean Corpuscular Hemoglobin 28.9 pg (26-34); Mean Corpuscular Volume 85.5 fl (80-100); Mean Platelet Volume 10.1 fl (7.4-10.4); Monocytes Absolute Auto 0.4 K/mm3 (0.1-0.6); Monocytes Percent Auto 8.3 % (2.6-8.5); Neutrophils Absolute Auto 2.5 K/mm3 (1.3-6.7); Neutrophils Percent Auto 47.3 % (45.5-73.1); Platelet Count Result 236 k/mm3 (150-375); Red Blood Count 4.63 M/mm3 (4.6-6.20); Red Cell Distribution Width 11.2 % (11.5-14.5); White Blood Count 5.3 K/mm3 (4.5-10.0)
[2024-11-04 16:08] LABS: Add Urine Microscopic? NO; Appearance Urine Clear (Clear); Bilirubin Urine Negative (Negative); Blood Urine Negative (Negative); Color Urine Yellow (Yellow); Glucose Urine UA 3+ mg/dL (Negative); Ketones Urine Trace mg/dL (Negative); Leukocyte Esterase Ur Negative LEU/UL (Negative); Nitrate Urine Negative (Negative); Protein Urine Negative (Negative); Urobilinogen Urine 0.2 mg/dL (<2.0); pH Urine 5.5 (5.0-9.0)
[2024-11-04 16:18] LABS: Alanine Aminotransferase 26 U/L (6-50); Albumin Level 4.3 g/dL (3.5-5.1); Alkaline Phosphatase 72 U/L (38-126); Anion Gap 10 mmol/L (4-12); Aspartate Amino Transferase 33 U/L (17-59); Bilirubin,Total 0.6 mg/dL (0.2-1.3); Blood Urea Nitrogen 16 mg/dL (9-20); Calcium 8.9 mg/dL (8.4-10.2); Carbon Dioxide 25 mmol/L (22-30); Chloride 94 mmol/L (98-107); Estimated CRCL calculation 112 ml/min; Estimated Glomerular Filt Rate > 60; Glucose 508 mg/dL (65-110); Lipase 515 U/L (23-300); Potassium 4.1 mmol/L (3.4-5.0); Sodium 129 mmol/L (137-145)
[2024-11-04] MEDS: SODIUM CHLORIDE 0.9% IV 1,000 ML 999 ML IV CONT ×2 (16:38)
[2024-11-04] MEDS: INSULIN HUMAN REGULAR (*BKC) 100 UNITS/ML 7.3 UNITS IV PUSH (16:38)
--- NOTE | 2024-11-04 17:20 | ED_ITS ---
HPI - Abdominal Pain General Chief Complaint: Abdominal Pain Stated Complaint: Lower abd pain rad down to feet x 3-4 days Time Seen by Provider: 11/04/24 16:26 History of Present Illness HPI narrative: Patient is a 34-year-old male who presents ER with multiple complaints. Mainly discomfort in lower abdomen left side and some discomfort in his thighs and calves. No trauma. No diarrhea. No urinary symptoms. Cannot describe any aggravating factors. Patient with elevated glucose. On taking history patient is poorly compliant with his insulin and Lantus. He has not been diagnosed with neuropathy but is concerned he may be developing it. Not describe any alleviating factors nor aggravating factors abdominal pain. It is nonradiating other than the discomfort that goes down his legs. Has no rashes. Related Data Home Medications Medication Instructions Recorded Confirmed Last Taken Type amlodipine 5 mg tablet 5 mg PO DAILY 09/19/22 09/19/22 Unknown History atorvastatin 10 mg tablet 10 mg PO HS 09/19/22 09/19/22 Unknown History insulin glargine 100 unit/mL 20 unit subcut HS 09/19/22 09/19/22 Unknown History subcutaneous solution (Lantus U-100 Insulin) insulin lispro 100 unit/mL 5 unit subcut TIDWM 09/19/22 09/19/22 Unknown History subcutaneous solution (Humalog U-100 Insulin) losartan 25 mg tablet 25 mg PO DAILY 09/19/22 09/19/22 Unknown History Allergies Allergy/AdvReac Type Severity Reaction Status Date / Time lisinopril Allergy Severe Swelling Verified 11/04/24 13:19 of Lip/Tongue/Throat Review of Systems 2 Review of Systems: All systems reviewed & are unremarkable except as noted in HPI and below Constitutional: Constitutional: Reports no additional constitutional complaints ENT: Reports system reviewed and no additional complaints, except as documented Cardiovascular: Cardiovascular: Reports no additional cardiovascular complaints Respiratory: Respiratory: Reports no additional respiratory complaints Gastrointestinal: Gastrointestinal: Reports no additional gastrointestinal complaints Musculoskeletal: Musculoskeletal: Reports no additional musculoskeletal complaints [facility] Past Medical History Medical History (Updated 11/04/24 @ 20:16 by Andry Rojas MD) HTN (hypertension) with goal to be determined Hyperlipidemia DM2 (diabetes mellitus, type 2) Surgical History Surgical History (Updated 09/19/22 @ 15:04 by Ivett Chaves, PLANNING MANAGER) [place] teeth extracted Family History Family History (Updated 09/19/22 @ 15:05 by Ivett Chaves, PLANNING MANAGER) Grandparent Diabetes mellitus Mother Diabetes mellitus Social History Social History (Updated 09/19/22 @ 17:14 by Ivett Chaves, PLANNING MANAGER) Social History: The patient lives with his and has one child. The power defense attorney is his . He works for [employer]. Code status full code Smoking packs per day: 0.5 Smoking cigarettes per day: 10.0 Years smoked: 8 Smoking pack-years: 4.00 Smoking status: Current some day smoker Tobacco type: cigarettes Alcohol intake: former Substance use: never Lack of Transportation: No Lack of Food: Sometimes True Current Housing: I Have Housing Concerned About Future Housing: No Difficulty Paying Gas/Electric Bills: No Difficulty Paying for Meds: No Currently Unemployed: No Education: Decline to Answer Difficulty w/ Childcare or Family Care: No Spiritual care concerns: No Exam 2 Narrative: GENERAL: Well-appearing, well-nourished, and in no acute distress. HEAD: Normocephalic, atraumatic. ENT: Mucous membranes moist. NECK: Supple. CHEST: Clear to auscultation. No respiratory distress. HEART: Regular rate and rhythm. Normal peripheral pulses. ABDOMEN: Soft, nontender, nondistended. EXTREMITIES: Normal range of motion. No edema. SKIN: Warm, dry, no rash. NEURO: Alert and oriented x3. PSYCH: Normal mood and affect. Course Course Emergency Course: Unremarkable exam. 2 L IV fluid and IV insulin to help with glucose. No gap. Discussed importance of compliance with diabetic regimen and patient verbalized understanding. Will need to follow-up with PCP. Vital Signs Vital signs: Vital Signs Temperature 97.4 F L 11/04/24 14:01 Pulse Rate 97 11/04/24 14:01 Respiratory Rate 16 11/04/24 14:01 Blood Pressure 139/100 H 11/04/24 14:01 Pulse Oximetry 100 11/04/24 14:01 Oxygen Delivery Room Air 11/04/24 14:01 Temperature 97.4 F L 11/04/24 14:01 Pulse Rate 88 11/04/24 15:23 Respiratory Rate 9 L 11/04/24 15:23 Blood Pressure 125/104 H 11/04/24 15:23 Pulse Oximetry 99 11/04/24 15:23 Oxygen Delivery Room Air 11/04/24 14:01 MDM - Abdominal Pain Lab Data 11/04/24 15:59 11/04/24 15:59 Labs: Lab Results 11/04/24 11/04/24 Range/Units 15:59 18:54 WBC 5.3 (4.5-10.0) K/mm3 RBC 4.63 (4.6-6.20) M/mm3 Hgb 13.4 L (14.0-18.0) g/dL Hct 39.6 L (42.0-52.0) % MCV 85.5 (80-100) fl MCH 28.9 (26-34) pg MCHC 33.8 (32-36) g/dl RDW 11.2 L (11.5-14.5) % Plt Count 236 (150-375) k/mm3 MPV 10.1 (7.4-10.4) fl Immature Gran % (Auto) 0.2 (0-0.5) % Neut % (Auto) 47.3 (45.5-73.1) % Lymph % (Auto) 42.7 (18.3-44.2) % [place] % (Auto) 8.3 (2.6-8.5) % Eos % (Auto) 0.9 (0-4.4) % Baso % (Auto) 0.6 (0.2-1.2) % Lymph # (Auto) 2.26 (0.9-3.2) K/mm3 [place] # (Auto) 0.4 (0.1-0.6) K/mm3 Eos # (Auto) 0.1 (0-0.3) K/mm3 Baso # (Auto) 0.0 (0.0-0.1) K/mm3 Abs Immat Gran (auto) 0.01 (0.00-0.031) K/mm3 Absolute Neuts (auto) 2.5 (1.3-6.7) K/mm3 Absolute Nucleated RBC 0.000 (0.0-0.012) K/mm3 Nucleated RBC % 0.0 (0.0-0.2) % Sodium 129 L (137-145) mmol/L Potassium 4.1 (3.4-5.0) mmol/L Chloride 94 L (98-107) mmol/L Carbon Dioxide 25 (22-30) mmol/L Anion Gap 10 (4-12) mmol/L BUN 16 (9-20) mg/dL Creatinine 0.72 (0.7-1.3) mg/dL Estim Creat Clear Calc 112 ml/min Estimated GFR > 60 (59 - ) Glucose 508 H* (65-110) mg/dL POC Capillary Glucose 194 H (65-105) mg/dl Calcium 8.9 (8.4-10.2) mg/dL Total Bilirubin 0.6 (0.2-1.3) mg/dL AST 33 (17-59) U/L ALT 26 (6-50) U/L Alkaline Phosphatase 72 (38-126) U/L Total Protein 7.0 (6.3-8.2) g/dL Albumin 4.3 (3.5-5.1) g/dL Lipase 515 H (23-300) U/L Urine Color Yellow (Yellow) Urine Appearance Clear (Clear) Urine pH 5.5 (5.0-9.0) Ur Specific [place] 1.040 H (1.001-1.035) Urine Protein Negative (Negative) mg/dL Urine Glucose (UA) 3+ H (Negative) mg/dL Urine Ketones Trace H (Negative) mg/dL Ur Blood (Man) Negative (Negative) Urine Nitrate Negative (Negative) Urine Bilirubin Negative (Negative) Urine Urobilinogen 0.2 (<2.0) mg/dL Leukocyte Esterase Rfl Negative (Negative) MARIBEL/UL Discharge Plan Discharge Clinical Impression: Uncontrolled diabetes mellitus Patient Disposition: Home Condition: Stable Instructions: Diabetic Hyperglycemia (ED) Additional Instructions: Take your Lantus daily. Follow-up with primary care doctor. Discuss if there is a better regimen to help control your blood sugar. Patient Language: Mongolian Prescriptions: No Action insulin glargine [Lantus U-100 Insulin] 100 unit/mL solution 20 unit SUBCUT HS atorvastatin 10 mg tablet 10 mg PO HS amlodipine 5 mg tablet 5 mg PO DAILY losartan 25 mg tablet 25 mg PO DAILY insulin lispro [Humalog U-100 Insulin] 100 unit/mL solution 5 unit subcut TIDWM dextrose [Glutose-15] 40 % Gel 15 g PO PRN PRN (Reason: Hypoglycemia) Qty: 112.5 0RF glipizide 5 mg Tablet 5 mg PO DAILY@0730 Qty: 30 0RF GlucaGen Diagnostic Kit 1 mg/mL Recon Soln 1 mg IM PRN PRN (Reason: Hypoglycemia) Qty: 1 0RF nicotine 14 mg/24 hr Patch 24 Hour 1 patch transdermal QAM Qty: 28 0RF polyethylene glycol 3350 [Miralax] 17 gram Powder In Packet 17 g PO QAM PRN (Reason: Constipation) Qty: 14 0RF metformin 500 mg tablet 500 mg PO BID Qty: 60 0RF Follow-up/Referrals: Adam,Laila Colin MD [Non-Staff] - 1 Week
--- OUTSIDE RECORDS SUMMARY | 2024-11-04 17:29 | XMS_ITS | Clinical Summary ---
Author Organization [facility] Address [address] [place] [address] Care Team Providers Care Senior Partner Name Role Phone Laila Medina MD Primary Care Provider [phone] Allergies Active Allergy Reactions Criticality Noted Date [...] Problem Noted Date Diagnosed Date Diabetes mellitus ([facility]) Assessment & Plan (07/19/2021 11:18 AM PIZZA COOK): Chronic, uncontrolled. A1C > 18.5 on admission. [...] Hypertension Assessment & Plan (07/18/2021 11:11 AM PIZZA COOK): Chronic. Uncontrolled. Home meds include losartan and amlodipine. BP low overnight. Hold home BP meds until BP elevates Monitor while inpatient. Resolved Problems Problem Noted Date Diagnosed Date Resolved Date DKA (diabetic ketoacidosis) ([facility]) 07/17/19 22 07/18/2021 Assessment & Plan (07/18/2021 11:08 AM PIZZA COOK): Resolved. Anion gap closed early this morning. Insulin drip stopped after 2 hours of Lantus dose. Continue to monitor with daily BMP Cough 07/19/2021 Assessment & Plan (07/18/2021 11:12 AM PIZZA COOK): COVID negative, likely was infected recently but since resolved. CTA negative. Continue to monitor as needed. Elevated d-dimer 07/19/2021 Assessment & Plan (07/18/2021 11:12 AM PIZZA COOK): CTA negative. Likely related to recent COVID. [...] on file Legal Sex Male 1:11 PM PIZZA COOK Gender Identity Not on file Sexual Orientation Not on file Last Filed Vital Signs Vital Sign Reading Time Taken Comments Blood Pressure 113/77 07/20/2021 3:55 AM PIZZA COOK Pulse 65 07/20/2021 3:55 AM PIZZA COOK Temperature 36.5 C (97.7 F) 07/20/2021 3:55 AM PIZZA COOK Respiratory Rate 18 07/20/2021 3:55 AM PIZZA COOK Oxygen Saturation 99% 07/20/2021 3:55 AM PIZZA COOK Inhaled Oxygen Concentration - - Weight 81 kg (178 lb 9.2 oz) 07/20/2021 3:55 AM PIZZA COOK Height 170.2 cm (5' 7 ) 07/17/2021 1:13 PM PIZZA COOK Body Mass Index 27.97 07/17/2021 1:13 PM PIZZA COOK Plan of Treatment Health Maintenance Due Date [...] Consistently take medications as Prescribed General No [place], 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, 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 Procedure Name Priority Date/Time Associated Diagnosis Comments HEMOGLOBIN, GLYCOSYLATED Routine 07/17/2021 2:15 PM PIZZA COOK from Last 3 Months or Most Recently Relevant to Health Maintenance Results * (ABNORMAL) HEMOGLOBIN, GLYCATED (07/17/2021 2:15 PM PIZZA COOK) HGB A1C >18.5(H) <5.7 % 07/18/2021 2:54 AM PIZZA COOK [facility] Comment: ADA GUIDELINES 2010 5.7 TO 6.4% INCREASED RISK OF DIABETES > OR = 6.5% CONSISTENT WITH DIABETES ESTIMATED AVG GLUCOSE NOT CALCULATED mg/dL 07/18/2021 2:54 AM PIZZA COOK [facility] 07/17/2021 2:15 PM PIZZA COOK Kenneth Hui MD LABORATORY Final Result [facility] [address] [place] [address], [place] [phone] from Last 3 Months or Most Recently Relevant to Health Maintenance Insurance MEDICAID UHC Advance Directives * Full Code (Latest Code Status on File) Date Activated Date Inactivated Comments 07/17/2021 5:19 PM 07/20/2021 11:53 AM Care Teams Senior Partner Relationship Specialty Start Date End Date Laila Medina MD PCP - General INTERNAL MEDICINE 07/17/21
--- OUTSIDE RECORDS SUMMARY | 2024-11-04 17:29 | XMS_ITS | Clinical Summary ---
Author Organization [facility] Address [address] [place] [address] Care Team Providers Care Electrical Controls Technician Name Role Phone Laila Medina MD Primary [...] on file Legal Sex Male 4:12 PM BLOCK AND CASE MAKER Gender Identity Not on file Sexual Orientation Not on file Last Filed Vital Signs Vital Sign Reading Time Taken Comments Blood Pressure 110/73 07/01/2021 6:50 AM BLOCK AND CASE MAKER Pulse 64 07/01/2021 6:50 AM BLOCK AND CASE MAKER Temperature 36.7 C (98.1 F) 06/30/2021 4:13 PM BLOCK AND CASE MAKER Respiratory Rate 16 07/01/2021 6:50 AM BLOCK AND CASE MAKER Oxygen Saturation 99% 07/01/2021 6:50 AM BLOCK AND CASE MAKER Inhaled Oxygen Concentration - - Weight 83.5 kg (184 lb 1.4 oz) 06/30/2021 4:13 P M BLOCK AND CASE MAKER Height 170.2 cm (5' 7 ) 06/30/2021 4:13 PM BLOCK AND CASE MAKER Body Mass Index 28.83 06/30/2021 4:13 PM BLOCK AND CASE MAKER Plan of Treatment [place] [address] IDPA [facility] CHOICE PLUS [facility] HMO/PPO Address: [address] [address] [place] [address] Care Teams Electrical Controls Technician Relationship Specialty [place] [address] [place] [id number] PCP - General Gastroenterology 06/30/21
--- OUTSIDE RECORDS SUMMARY | 2024-11-04 17:29 | XMS_ITS | Referral Summary ---
Author Organization [facility] Address [address] [place] [address] Care Team Providers Care Emr Analyst Name Role Phone Laila Medina MD Primary [...] on file Legal Sex Male 4:12 PM SYSTEM DEVELOPMENT MANAGER Gender Identity Not on file Sexual Orientation Not on file Last Filed Vital Signs Vital Sign Reading Time Taken Comments Blood Pressure 110/73 07/01/2021 6:50 AM SYSTEM DEVELOPMENT MANAGER Pulse 64 07/01/2021 6:50 AM SYSTEM DEVELOPMENT MANAGER Temperature 36.7 C (98.1 F) 06/30/2021 4:13 PM SYSTEM DEVELOPMENT MANAGER Respiratory Rate 16 07/01/2021 6:50 AM SYSTEM DEVELOPMENT MANAGER Oxygen Saturation 99% 07/01/2021 6:50 AM SYSTEM DEVELOPMENT MANAGER Inhaled Oxygen Concentration - - Weight 83.5 kg (184 lb 1.4 oz) 06/30/2021 4:13 P M SYSTEM DEVELOPMENT MANAGER Height 170.2 cm (5' 7 ) 06/30/2021 4:13 PM SYSTEM DEVELOPMENT MANAGER Body Mass Index 28.83 06/30/2021 4:13 PM SYSTEM DEVELOPMENT MANAGER Plan of Treatment [place] [address] IDPA [facility] CHOICE PLUS Care Teams Emr Analyst Relationship Specialty [place] [address] [place] [id number] PCP - General Gastroenterology 06/30/21
[2024-11-04 18:56] LABS: Glucose Point of Care 194 mg/dl (65-105)
== END 2024-11-04 20:46 | disposition home or self-care (01) ==
PROVIDERS: Emergency Medicine; Emergency Provider Emergency Medicine
DX: E11.65 Type 2 diabetes mellitus with hyperglycemia (principal); I10 Essential (primary) hypertension; E78.5 Hyperlipidemia, unspecified; F17.210 Nicotine dependence, cigarettes, uncomplicated
CPT/HCPCS: 36415; 80053; 81003; 82948; 83690; 85025; 96361; 96374; 99284; J1815; J7030